=== PATIENT | female | born 1960 | race Caucasian/White ===

== ENCOUNTER 2017-03-12 16:51 | Emergency (ER) | payer MEDICAID ==
[~2017-03-12] VITALS: Ht 177.8 cm; Wt 73.5 kg
[~2017-03-12 16:51] MED LIST: CEFD300C37 PO; ESCI10TA10 PO; ESOM20CA; ESOM40CA PO; HYDR-3138 PO; HYDR-3307; IBUP200T48; IBUP200T5 PO; LORA1TAB; RISP2TAB35; RISP2TAB35 PO; SUMA100T3; TRAM100T8; TRAZ150T68
[2017-03-12 17:54] LABS: ACETAMINOPHEN < 2 mcg/mL (10-30); BLOOD UREA NITROGEN 21 mg/dL (7-18)
[2017-03-12] MEDS ORDERED: ZIPRASIDONE 20 MG INJ IM ONE (19:49)
[2017-03-12 23:05] VITALS: BP 148/88
== END 2017-03-12 23:07 | disposition home or self-care (01) ==
LOC: ED 19:42
DX: F20.89 Other schizophrenia (principal); F10.120 Alcohol abuse with intoxication, uncomplicated; M06.9 Rheumatoid arthritis, unspecified; F31.9 Bipolar disorder, unspecified; F17.200 Nicotine dependence, unspecified, uncomplicated
CPT/HCPCS: 36415; 80048; 80307; 80329; 82040; 85025; 99284; G0480

== ENCOUNTER 2017-05-06 14:23 | Emergency (ER) | payer SELFPAY ==
[~2017-05-06] VITALS: Ht 180.3 cm; Wt 75.0 kg
[2017-05-06 14:25] VITALS: BP 173/110
== END 2017-05-06 15:55 | disposition left against medical advice (07) ==
LOC: ED 15:52
DX: M25.561 Pain in right knee (principal); M79.604 Pain in right leg; Z53.21 Procedure and treatment not carried out due to patient leaving prior to being seen by health care provider

== ENCOUNTER 2017-10-14 14:26 | Emergency (ER) | payer OTHER ==
[~2017-10-14] VITALS: Ht 179.1 cm; Wt 77.0 kg
[~2017-10-14 14:26] MED LIST changes: -HYDR-3138 PO; +HYDR-3237 PO; +IBUP-1484 PO; -IBUP200T5 PO; +TRAZ150T62; -TRAZ150T68
[2017-10-14] MEDS ORDERED: IBUP-1223 PO (14:48)
[2017-10-14] MEDS ORDERED: ONDANSETRON ODT 4 MG PO ONE (15:00)
[2017-10-14] MEDS ORDERED: ONDANSETRON ODT 4 MG ONE (15:01)
[2017-10-14 15:20] LABS: HEMATOCRIT 47.2 % (34.6-47.8); HEMOGLOBIN 15.9 g/dL (11.7-16.4); WHITE BLOOD COUNT 7.2 x10^3/uL (3.4-10)
[2017-10-14 15:26] LABS: BLOOD UREA NITROGEN 24 mg/dL (7-18)
[2017-10-14 15:43] LABS: RAPID INFLUENZA A Negative (Negative); RAPID INFLUENZA B Negative (Negative)
[2017-10-14 16:29] VITALS: BP 154/92
[2017-10-14] MEDS ORDERED: IBUPROFEN 200 MG TABLET PO ONE (16:30)
== END 2017-10-14 16:31 | disposition home or self-care (01) ==
LOC: ED 16:25
DX: J20.8 Acute bronchitis due to other specified organisms (principal); I10 Essential (primary) hypertension; G40.909 Epilepsy, unspecified, not intractable, without status epilepticus; M06.9 Rheumatoid arthritis, unspecified
CPT/HCPCS: 36415; 71020; 80048; 82040; 85025; 87400; 99285; Q0162

== ENCOUNTER 2019-02-19 16:43 | Emergency (ER) | payer MEDICAID ==
[~2019-02-19] VITALS: Ht 175.3 cm; Wt 67.5 kg
[~2019-02-19 16:43] MED LIST changes: +IBUP-1223 PO; -IBUP200T48; +IBUP200T49
--- NOTE | 2019-02-19 16:58 | NUR ---
NO ANSWER X1
--- NOTE | 2019-02-19 17:10 | NUR ---
NO ANSWER X 2
--- NOTE | 2019-02-19 17:50 | NUR ---
Assumed care of patient. C/O SI, but not plan. C/O hearing voices x 2 years. Ambulated with a steady gait to the restroom to collect urine.
[2019-02-19 18:00] LABS: BASOPHILS # (AUTO) 0.02 x10^3/uL (0-0.1); BASOPHILS % (AUTO) 0 % (0-1); EOSINOPHILS # (AUTO) 0.27 x10^3/uL (0-0.4); EOSINOPHILS % (AUTO) 3 % (1-7); LYMPHOCYTES # (AUTO) 1.07 x10^3/uL (1-3.4); LYMPHOCYTES % (AUTO) 11 % (22-44); MD NO; MEAN CORPUSCULAR HEMOGLOBIN 26.7 pg (27.0-34.8); MEAN CORPUSCULAR HGB CONC 32.5 g/dL (32.4-35.8); MEAN CORPUSCULAR VOLUME 82.1 fL (80-100); MEAN PLATELET VOLUME 8.3 fL (7.4-10.4); MONOCYTES # (AUTO) 0.38 x10^3/uL (0.2-0.8); MONOCYTES % (AUTO) 4 % (2-9); NEUTROPHILS # (AUTO) 7.66 x10^3/uL (1.8-6.8); NEUTROPHILS % (AUTO) 82 % (42-75); PLATELET COUNT 353 x10^3/uL (130-400); RED BLOOD COUNT 4.32 x10^6/uL (3.82-5.3); RED CELL DISTRIBUTION WIDTH 14.6 % (9.6-15.2)
--- NOTE | 2019-02-19 18:04 | NUR ---
Patient reports forgettign to urinate in cup when in restroom.
[2019-02-19 18:09] LABS: ALANINE AMINOTRANSFERASE 31 U/L (12-78); ALBUMIN 3.8 g/dL (3.4-5.0); ANION GAP 8 mmol/L (5-15); CALCIUM 9.1 mg/dL (8.5-10.1); CHLORIDE 108 mmol/L (98-107)
[2019-02-19 18:12] LABS: ALKALINE PHOSPHATASE 132 U/L (45-117); BILIRUBIN,TOTAL 0.3 mg/dL (0.2-1.0); CREATININE 1.29 mg/dL (0.55-1.02); TOTAL PROTEIN 7.7 g/dL (6.4-8.2)
[2019-02-19 18:15] LABS: ACETAMINOPHEN < 2 mcg/mL (10-30)
--- NOTE | 2019-02-19 19:01 | NUR ---
MD at bedside discussing POC.
--- NOTE | 2019-02-19 19:22 | NUR ---
telepsych initiated, [id number] bot placed at bs.
[2019-02-19] MEDS ORDERED: ACETAMINOPHEN 325 MG TABLET ONE (19:41)
[2019-02-19 19:45] LABS: AMPHETAMINE SCREEN, URINE Positive (Negative); BARBITURATE SCREEN, URINE Negative (Negative); BENZODIAZEPINE SCREEN, URINE Negative (Negative); CANNABINOID SCREEN, URINE Positive (Negative); COCAINE SCREEN, URINE Negative (Negative); METHADONE SCREEN, URINE Negative (Negative); OPIATE SCREEN, URINE Negative (Negative)
--- NOTE | 2019-02-19 19:50 | NUR ---
C/O back and knee pain d/t arthritis. Tylenol admin. No other needs.
[2019-02-19] MEDS ORDERED: ACETAMINOPHEN 325 MG TABLET PO ONE (20:00)
--- NOTE | 2019-02-19 20:48 | NUR ---
Provided with dinner and more blankets. No needs.
--- NOTE | 2019-02-19 21:42 | NUR ---
ASSUMED CARE OF PATIENT. REPORT GIVEN FROM FABIAN MEANS
--- NOTE | 2019-02-19 21:50 | NUR ---
Report to Soniya Esquivel RN.
--- NOTE | 2019-02-19 21:51 | NUR ---
pt resting in room. pt waiting for telepsych. no acute distress noted. sitter at door. will continue to monitor.
--- NOTE | 2019-02-19 22:02 | NUR ---
PT REQUESTING IBU. DR REIS AWARE
[2019-02-19] MEDS ORDERED: IBUPROFEN 200 MG TABLET PO ONE (22:30)
[2019-02-19] MEDS ORDERED: IBUPROFEN 200 MG TABLET ONE (22:30)
--- NOTE | 2019-02-19 22:58 | NUR ---
PT RESTING IN ROOM. PT WAITING FOR TELEPSYCH. SITTER AT BEDSIDE. WILL CONTINUE TO MONITOR.
[2019-02-19] MEDS ORDERED: HYDROcodone/APAP 5/325 TABLET ONE (23:06)
[2019-02-19] MEDS ORDERED: HYDROcodone/APAP 5/325 TABLET PO ONE (23:30)
--- NOTE | 2019-02-19 23:30 | NUR ---
REPORT CALLED INTO SOC
--- NOTE | 2019-02-20 00:08 | NUR ---
DR REIS HAS UPDATED PATIENT. PT TO BE DISCHARGED
[2019-02-20] MEDS ORDERED: FAMOTIDINE 20 MG TABLET ONE (00:13)
[2019-02-20] MEDS ORDERED: POTASSIUM CHLORIDE 20 MEQ TAB.ER.PRT ONE (00:13)
[2019-02-20] MEDS ORDERED: FAMOTIDINE 20 MG TABLET PO ONE (00:30)
[2019-02-20] MEDS ORDERED: POTASSIUM CHLORIDE 20 MEQ TAB.ER.PRT PO ONE (00:30)
[2019-02-20] MEDS ORDERED: LORazepam 1MG TABLET ONE (00:36)
--- NOTE | 2019-02-20 00:41 | NUR ---
PT DENIES SI. PT REPORTS SHE WANTS TO BE DISCHARGED. PT DISCHRAGED BY DR REIS AND SOC. PT GIVEN ATIVAN BEFORE DISCHRAGE. PT GETTING DRESSED.
[2019-02-20] MEDS ORDERED: LORazepam 1MG TABLET PO ONE (01:00)
[2019-02-20 01:01] VITALS: BP 160/98
== END 2019-02-20 01:17 | disposition home or self-care (01) ==
LOC: ED 18:42
DX: F32.0 Major depressive disorder, single episode, mild (principal); F15.129 Other stimulant abuse with intoxication, unspecified; F20.9 Schizophrenia, unspecified; F41.1 Generalized anxiety disorder; I10 Essential (primary) hypertension; G43.909 Migraine, unspecified, not intractable, without status migrainosus; M06.9 Rheumatoid arthritis, unspecified; Z72.9 Problem related to lifestyle, unspecified; Z75.9 Unspecified problem related to medical facilities and other health care; Z91.14 Patient's other noncompliance with medication regimen; Z63.8 Other specified problems related to primary support group
CPT/HCPCS: 36415; 80053; 80307; 80329; 85025; 99284; G0480

== ENCOUNTER 2019-02-21 23:24 | Emergency (ER) | payer MEDICAID ==
[~2019-02-21] VITALS: Ht 177.8 cm; Wt 69.0 kg
--- NOTE | 2019-02-21 23:39 | NUR ---
pt ambulates from triage to room with steady gait.
--- NOTE | 2019-02-21 23:46 | NUR ---
PT BELONGINGS CONFISCATED AND PLACED IN 3 OF 3 BAGS TO BE LOCKED IN SECURED STORAGE. PT EDUCATED ON ER PROCESS AND VERBALIZES UNDERSTANDING. PT INSTRUCTED TO CHANGE INTO GOWN AND TO REMAIN IN GURNEY. AWAITING ERP AT THIS TIME. PT BEING MOVED FROM ER ROOM 37 TO 41 SO THAT ROOM CAN BE SECURE FOR PT AND STAFF SAFETY AND BE MONITORED BY [facility]ER[facility]. AWAITING POC AT THIS TIME.
[2019-02-21 23:56] LABS: BASOPHILS # (AUTO) 0.03 x10^3/uL (0-0.1); BASOPHILS % (AUTO) 0 % (0-1); EOSINOPHILS # (AUTO) 0.31 x10^3/uL (0-0.4); EOSINOPHILS % (AUTO) 4 % (1-7); LYMPHOCYTES # (AUTO) 1.39 x10^3/uL (1-3.4); LYMPHOCYTES % (AUTO) 17 % (22-44); MD NO; MEAN CORPUSCULAR HEMOGLOBIN 27.9 pg (27.0-34.8); MEAN PLATELET VOLUME 8.1 fL (7.4-10.4); MONOCYTES # (AUTO) 0.56 x10^3/uL (0.2-0.8); MONOCYTES % (AUTO) 7 % (2-9); NEUTROPHILS # (AUTO) 6.15 x10^3/uL (1.8-6.8); NEUTROPHILS % (AUTO) 73 % (42-75); PLATELET COUNT 348 x10^3/uL (130-400); RED BLOOD COUNT 4.29 x10^6/uL (3.82-5.3); RED CELL DISTRIBUTION WIDTH 15.1 % (9.6-15.2)
[2019-02-22 00:07] LABS: ALANINE AMINOTRANSFERASE 33 U/L (12-78); ALBUMIN 3.8 g/dL (3.4-5.0); ANION GAP 7 mmol/L (5-15); CALCIUM 8.8 mg/dL (8.5-10.1); CHLORIDE 109 mmol/L (98-107); CREATININE 1.58 mg/dL (0.55-1.02)
[2019-02-22 00:09] LABS: ALKALINE PHOSPHATASE 149 U/L (45-117); BILIRUBIN,TOTAL 0.6 mg/dL (0.2-1.0); TOTAL PROTEIN 7.8 g/dL (6.4-8.2)
[2019-02-22 00:14] LABS: SALICYLATE LEVEL < 1.7 mg/dL (2.8-20.0)
[2019-02-22 00:15] LABS: ACETAMINOPHEN < 2 mcg/mL (10-30)
--- NOTE | 2019-02-22 01:33 | NUR ---
PT MOVED FROM ROOM 37 TO ROOM 41
--- NOTE | 2019-02-22 02:00 | NUR ---
PT INSTRUCTED ON THE NEED FOR URINE SAMPLE. PT VERBALIZES UNDERSTANDING BUT IS NON COOPERATIVE AT THIS TIME.
--- NOTE | 2019-02-22 02:39 | NUR ---
PT ASLEEP IN [facility]; [place]. SITTER OUTSIDE OF ROOM AT THIS TIME FOR DIRECT OBSERVATION OF PT.
[2019-02-22 05:37] VITALS: BP 164/105
--- NOTE | 2019-02-22 05:37 | NUR ---
PT VSS AND UPDATED IN EMR. PT FINISHED TELEPSYCH CONSULT. PT PROVIDED ICE CHIPS PER REQUEST. SITTER OUTSIDE OF ROOM FOR PT OBSERVATION.
[2019-02-22 05:52] LABS: AMPHETAMINE SCREEN, URINE Positive (Negative); BARBITURATE SCREEN, URINE Negative (Negative); BENZODIAZEPINE SCREEN, URINE Negative (Negative); CANNABINOID SCREEN, URINE Positive (Negative); COCAINE SCREEN, URINE Negative (Negative); METHADONE SCREEN, URINE Negative (Negative); OPIATE SCREEN, URINE Negative (Negative)
--- NOTE | 2019-02-22 06:48 | NUR ---
bedside report from FABIAN Davey. pt resting on gurney. no acute distress noted. pt comes to ED with c/o major depression.
--- NOTE | 2019-02-22 06:49 | NUR ---
BS REPORT OF PT GIVEN TO FABIAN ENNIS. ALL QUESTIONS ANSWERED.
--- NOTE | 2019-02-22 07:23 | NUR ---
DIET TRAY ORDERED.
--- NOTE | 2019-02-22 08:07 | NUR ---
PT SLEEPING ON GURNEY. NO ACUTE DISTRESS NOTED. RESPS EQUAL AND UNLABORED. ALL SAFETY MEASURES OBTAINED. WILL CONTINUE TO MONITOR.
--- NOTE | 2019-02-22 08:17 | NUR ---
DIET TRAY DELIVERED. PT A&OX4. NO ACUTE DISTRESS NOTED. PT PLEASANT AND THANKFUL FOR BREAKFAST TRAY. NO NEEDS REQUESTED AT THIS TIME. ALL SAFETY MEASURES OBTAINED
[2019-02-22] MEDS ORDERED: ACETAMINOPHEN 325 MG TABLET ONE (08:40)
--- NOTE | 2019-02-22 08:44 | NUR ---
PT C/O BILATERAL HIP PAIN. PT GIVEN TYLENOL. PT NOW RUDE AND CALLED THIS RN "BITCH" I WAS LEAVING THE ROOM. ALL SAFETY MEASURES OBTAINED
--- NOTE | 2019-02-22 09:43 | NUR ---
REPORT TO FABIAN IRVIN. ALL QUESTIONS ANSWERED
--- NOTE | 2019-02-22 09:50 | NUR ---
PT TRANSFERRED TO FACILITY. PT LEFT WITH ALL PERSONAL BELONGINGS, INCLUDING WALKER.
[2019-02-22] MEDS ORDERED: ACETAMINOPHEN 325 MG TABLET PO ONE (10:00)
== END 2019-02-22 10:11 ==
LOC: ED 23:59 → UNDOADMIN 02-22 06:26 → EDIP 02-22 06:26 → ED 02-22 10:11
DX: F20.0 Paranoid schizophrenia (principal)
CPT/HCPCS: 36415; 80053; 80307; 80329; 85025; 99285; G0480

== ENCOUNTER 2019-02-22 09:30 | Inpatient (IN) | payer MEDICAID ==
[~2019-02-22] VITALS: Ht 175.3 cm; Wt 66.8 kg
[2019-02-22 09:54] VITALS: BP 182/99
[2019-02-22] MEDS ORDERED: PLEASE ENTER HEIGHT AND WEIGHT MC SCH (10:00)
[2019-02-22] MEDS ORDERED: BISACODYL 10 MG SUPP PR PRN (10:00)
[2019-02-22] MEDS ORDERED: POLYETHYLENE GLYCOL 17 GM PACKET PO PRN (10:00)
[2019-02-22 10:55] LABS: BASOPHILS # (AUTO) 0.03 x10^3/uL (0-0.1); BASOPHILS % (AUTO) 1 % (0-1); EOSINOPHILS # (AUTO) 0.29 x10^3/uL (0-0.4); EOSINOPHILS % (AUTO) 5 % (1-7); LYMPHOCYTES # (AUTO) 0.96 x10^3/uL (1-3.4); LYMPHOCYTES % (AUTO) 15 % (22-44); MD NO; MEAN CORPUSCULAR HEMOGLOBIN 27.4 pg (27.0-34.8); MEAN CORPUSCULAR HGB CONC 33.1 g/dL (32.4-35.8); MEAN CORPUSCULAR VOLUME 82.8 fL (80-100); MEAN PLATELET VOLUME 8.2 fL (7.4-10.4); MONOCYTES # (AUTO) 0.38 x10^3/uL (0.2-0.8); MONOCYTES % (AUTO) 6 % (2-9); NEUTROPHILS # (AUTO) 4.57 x10^3/uL (1.8-6.8); NEUTROPHILS % (AUTO) 73 % (42-75); PLATELET COUNT 328 x10^3/uL (130-400); RED BLOOD COUNT 4.18 x10^6/uL (3.82-5.3); RED CELL DISTRIBUTION WIDTH 15.5 % (9.6-15.2)
[2019-02-22 10:58] LABS: ALBUMIN 3.1 g/dL (3.4-5.0); ANION GAP 7 mmol/L (5-15); CALCIUM 8.8 mg/dL (8.5-10.1); CHLORIDE 109 mmol/L (98-107)
[2019-02-22 11:00] VITALS: BP 182/99
[2019-02-22 11:25] LABS: ALANINE AMINOTRANSFERASE 27 U/L (12-78); ALKALINE PHOSPHATASE 125 U/L (45-117); BILIRUBIN,TOTAL 0.4 mg/dL (0.2-1.0); CHOL/HDL RATIO 2.6; CHOLESTEROL, TOTAL 136 mg/dL (140-239); CREATININE 1.15 mg/dL (0.55-1.02); FREE T4 (FREE THYROXINE) 1.19 ng/dL (0.76-1.46); HDL CHOL % 38 % (28-40); HDL CHOLESTEROL (DIRECT) 52 mg/dL (40-60); LDL CHOLESTEROL,CALCULATED 57 mg/dL (54-169); LDL/HDL RATIO 1.1 (0.5-3.0); THYROID STIMULATING HORMONE 0.403 mIU/L (0.358-3.740); TOTAL PROTEIN 6.8 g/dL (6.4-8.2); TRIGLYCERIDES 137 mg/dL (50-200); VLDL CHOLESTEROL 27 mg/dL (0-25)
[2019-02-22 11:27] LABS: HCT (SEDRATE) 34.6 % (34.6-47.8)
[2019-02-22 13:55] LABS: MICROSCOPIC AUTO
[2019-02-22 14:01] LABS: CULTURE INDICATED? YES
[2019-02-22] MEDS: LORazepam 1MG TABLET PO PRN (17:00)
[2019-02-22] MEDS: ACETAMINOPHEN 325 MG TABLET PO PRN (17:00)
[2019-02-22 19:50] VITALS: BP 156/91
[2019-02-22] MEDS: RISPERIDONE 1 MG TABLET PO SCH (19:59)
[2019-02-23] MEDS: LORazepam 1MG TABLET PO PRN ×3 (01:28→20:19)
[2019-02-23 07:02] VITALS: BP 152/94
[2019-02-23] MEDS: SENNA/DOCUSATE TABLET PO SCH ×2 (09:00→09:42)
[2019-02-23] MEDS: RISPERIDONE 1 MG TABLET PO SCH ×2 (09:42→20:15)
[2019-02-23] MEDS: ACETAMINOPHEN 325 MG TABLET PO PRN (10:49)
[2019-02-23] MEDS ORDERED: CALCIUM CARBONATE 500 MG TAB.CHEW ONE (10:58)
[2019-02-23] MEDS ORDERED: CALCIUM CARBONATE 500 MG TAB.CHEW PO PRN (11:00)
[2019-02-23] MEDS: SODIUM CHLORIDE 0.9% 1,000 ML IV SCH ×2 (14:15→14:23)
[2019-02-23 17:28] VITALS: BP 165/89
[2019-02-23] MEDS: CARVEDILOL 6.25 MG TABLET PO SCH (17:30)
[2019-02-23 19:38] VITALS: BP 160/89
[2019-02-24] MEDS: SODIUM CHLORIDE 0.9% 1,000 ML IV SCH ×2 (01:40→09:00)
[2019-02-24 04:44] LABS: BASOPHILS # (AUTO) 0.02 x10^3/uL (0-0.1); BASOPHILS % (AUTO) 0 % (0-1); EOSINOPHILS # (AUTO) 0.23 x10^3/uL (0-0.4); EOSINOPHILS % (AUTO) 5 % (1-7); LYMPHOCYTES # (AUTO) 1.09 x10^3/uL (1-3.4); LYMPHOCYTES % (AUTO) 22 % (22-44); MD NO; MEAN CORPUSCULAR HGB CONC 33.5 g/dL (32.4-35.8); MEAN CORPUSCULAR VOLUME 83.8 fL (80-100); MONOCYTES # (AUTO) 0.33 x10^3/uL (0.2-0.8); MONOCYTES % (AUTO) 7 % (2-9); NEUTROPHILS # (AUTO) 3.36 x10^3/uL (1.8-6.8); NEUTROPHILS % (AUTO) 67 % (42-75); PLATELET COUNT 267 x10^3/uL (130-400); RED BLOOD COUNT 3.81 x10^6/uL (3.82-5.3); RED CELL DISTRIBUTION WIDTH 15.6 % (9.6-15.2)
[2019-02-24 04:56] LABS: ANION GAP 6 mmol/L (5-15); CALCIUM 8.3 mg/dL (8.5-10.1); CHLORIDE 116 mmol/L (98-107)
[2019-02-24] MEDS: CARVEDILOL 6.25 MG TABLET PO SCH (06:00)
[2019-02-24 07:20] VITALS: BP 169/93
[2019-02-24] MEDS: SENNA/DOCUSATE TABLET PO SCH (09:00)
[2019-02-24] MEDS: RISPERIDONE 1 MG TABLET PO SCH ×2 (09:06→19:54)
[2019-02-24] MEDS: LORazepam 1MG TABLET PO PRN ×2 (10:11→19:54)
[2019-02-24] MEDS: CEFTRIAXONE PMX 1GM/50ML 50 ML IV SCH (10:36)
[2019-02-24 17:33] VITALS: BP 169/88
[2019-02-24] MEDS: CARVEDILOL 12.5 MG TABLET PO SCH (17:35)
[2019-02-24 19:50] VITALS: BP 165/83
[2019-02-24] MEDS: SODIUM CHLORIDE FLUSH 10ML SYR IVF SCH (19:56)
[2019-02-25] MEDS: CARVEDILOL 12.5 MG TABLET PO SCH ×2 (05:27→17:46)
[2019-02-25] MEDS: ACETAMINOPHEN 325 MG TABLET PO PRN (05:27)
[2019-02-25] MEDS: LORazepam 1MG TABLET PO PRN ×2 (05:27→18:01)
[2019-02-25 06:54] LABS: BASOPHILS # (AUTO) 0.02 x10^3/uL (0-0.1); BASOPHILS % (AUTO) 1 % (0-1); EOSINOPHILS % (AUTO) 4 % (1-7); LYMPHOCYTES # (AUTO) 1.18 x10^3/uL (1-3.4); LYMPHOCYTES % (AUTO) 25 % (22-44); MD NO; MEAN CORPUSCULAR HEMOGLOBIN 27.2 pg (27.0-34.8); MEAN CORPUSCULAR HGB CONC 32.6 g/dL (32.4-35.8); MEAN CORPUSCULAR VOLUME 83.5 fL (80-100); MEAN PLATELET VOLUME 7.9 fL (7.4-10.4); MONOCYTES # (AUTO) 0.36 x10^3/uL (0.2-0.8); MONOCYTES % (AUTO) 8 % (2-9); NEUTROPHILS # (AUTO) 2.88 x10^3/uL (1.8-6.8); NEUTROPHILS % (AUTO) 62 % (42-75); PLATELET COUNT 247 x10^3/uL (130-400); RED BLOOD COUNT 3.89 x10^6/uL (3.82-5.3)
[2019-02-25 07:05] LABS: ALANINE AMINOTRANSFERASE 29 U/L (12-78); ALBUMIN 2.8 g/dL (3.4-5.0); ANION GAP 7 mmol/L (5-15); CALCIUM 8.2 mg/dL (8.5-10.1); CHLORIDE 113 mmol/L (98-107); CREATININE 0.78 mg/dL (0.55-1.02)
[2019-02-25 07:08] LABS: ALKALINE PHOSPHATASE 101 U/L (45-117); BILIRUBIN,TOTAL 0.3 mg/dL (0.2-1.0); TOTAL PROTEIN 6.5 g/dL (6.4-8.2)
[2019-02-25 07:14] VITALS: BP 158/95
[2019-02-25] MEDS: SODIUM CHLORIDE FLUSH 10ML SYR IVF SCH ×2 (09:08→20:15)
[2019-02-25] MEDS: CEFTRIAXONE PMX 1GM/50ML 50 ML IV SCH (09:09)
[2019-02-25] MEDS: RISPERIDONE 1 MG TABLET PO SCH ×2 (09:09→20:15)
[2019-02-25] MEDS: SENNA/DOCUSATE TABLET PO SCH (09:09)
[2019-02-25 18:00] VITALS: BP 156/87
[2019-02-25 19:40] VITALS: BP 169/104
[2019-02-26] MEDS: LORazepam 1MG TABLET PO PRN (01:20)
[2019-02-26 06:43] LABS: CHLORIDE 110 mmol/L (98-107)
[2019-02-26 06:48] LABS: ANION GAP 7 mmol/L (5-15); CALCIUM 8.8 mg/dL (8.5-10.1); CREATININE 0.88 mg/dL (0.55-1.02)
[2019-02-26 07:23] VITALS: BP 169/94
[2019-02-26] MEDS: RISPERIDONE 1 MG TABLET PO SCH ×2 (08:24→09:26)
[2019-02-26] MEDS: LISINOPRIL 5 MG TABLET PO SCH ×2 (08:24→09:26)
[2019-02-26] MEDS: CARVEDILOL 12.5 MG TABLET PO SCH ×2 (08:25→09:25)
[2019-02-26] MEDS: SODIUM CHLORIDE FLUSH 10ML SYR IVF SCH (08:25)
[2019-02-26] MEDS: SENNA/DOCUSATE TABLET PO SCH (08:58)
[2019-02-26] MEDS: CEFTRIAXONE PMX 1GM/50ML 50 ML IV SCH (09:15)
[2019-02-26] MEDS ORDERED: AMOXICILLIN/CLAV 875-125MG TABLET PO SCH (10:00)
== END 2019-02-26 10:11 | disposition home or self-care (01) | DRG 683 ==
LOC: 3E 09:54
PROVIDERS: ADMIT Psychiatry & Neurology Psychosomatic Medicine; ATTEND Psychiatry & Neurology Psychosomatic Medicine
DX: N17.9 Acute kidney failure, unspecified (principal); F20.0 Paranoid schizophrenia; F23 Brief psychotic disorder; N39.0 Urinary tract infection, site not specified; E87.6 Hypokalemia; F31.9 Bipolar disorder, unspecified; G40.909 Epilepsy, unspecified, not intractable, without status epilepticus; I10 Essential (primary) hypertension; K21.9 Gastro-esophageal reflux disease without esophagitis; K59.00 Constipation, unspecified; M06.9 Rheumatoid arthritis, unspecified; M19.90 Unspecified osteoarthritis, unspecified site; M54.30 Sciatica, unspecified side; M81.0 Age-related osteoporosis without current pathological fracture; G89.29 Other chronic pain; F42.8 Other obsessive-compulsive disorder; Z53.21 Procedure and treatment not carried out due to patient leaving prior to being seen by health care provider; Z82.49 Family history of ischemic heart disease and other diseases of the circulatory system; Z82.5 Family history of asthma and other chronic lower respiratory diseases; Z87.11 Personal history of peptic ulcer disease; Z87.891 Personal history of nicotine dependence
CPT/HCPCS: 36415; 80048; 80053; 80061; 81001; 82140; 82607; 84439; 84443; 85025; 85651; 86592; 87077; 87086; 87186; 93005; J0696; 92522-GN; J7030

== ENCOUNTER 2019-06-03 21:17 | Emergency (ER) | payer MEDICAID ==
[~2019-06-03] VITALS: Ht 177.8 cm; Wt 75.0 kg
[2019-06-03] MEDS ORDERED: ranitidine (21:32)
--- NOTE | 2019-06-03 21:33 | NUR ---
Patient to room with EMS; patient c/o pain in right hip; right back pain with no new trauma or event. Placed on monitor; provider to bedside; awaiting orders VSS.
[2019-06-03] MEDS ORDERED: HYDROcodone/APAP 5/325 TABLET ONE (21:47)
--- NOTE | 2019-06-03 21:49 | NUR ---
Orders received; order for UA noted; informed patient; patient relayed she couldn't walk; RN informed straight cath would be necessary, patient agreed. x2 RN to bedside for straight cath urine collection. Patient educated on process. Patient verbalized understanding, urine collected without event. Pain med per md order administered. Awaiting radiology
--- NOTE | 2019-06-03 21:56 | NUR ---
Patient to xray
[2019-06-03] MEDS ORDERED: HYDROcodone/APAP 5/325 TABLET PO ONE (22:00)
[2019-06-03 22:02] LABS: MICROSCOPIC AUTO
--- NOTE | 2019-06-03 22:02 | NUR ---
Report to NOC RN. POC covered; all questions answered.
[2019-06-03 22:05] LABS: CULTURE INDICATED? YES
[2019-06-03] MEDS ORDERED: KETOROLAC 30 MG/1 ML IM ONE (22:30)
[2019-06-03] MEDS ORDERED: CEFDINIR 300 MG CAPSULE PO ONE (22:30)
[2019-06-03] MEDS ORDERED: KETOROLAC 30 MG/1 ML ONE (22:45)
[2019-06-03] MEDS ORDERED: CEFDINIR 300 MG CAPSULE ONE (22:45)
[2019-06-03 22:52] VITALS: BP 158/99
== END 2019-06-03 22:54 | disposition home or self-care (01) ==
LOC: ED 22:03
DX: G89.29 Other chronic pain (principal); M54.5 Low back pain; M25.551 Pain in right hip; N39.0 Urinary tract infection, site not specified; M25.511 Pain in right shoulder; I10 Essential (primary) hypertension; F17.210 Nicotine dependence, cigarettes, uncomplicated; F20.9 Schizophrenia, unspecified
CPT/HCPCS: 71045; 72110; 73502; 81001; 87077; 87086; 96372; 99284; J1885; 87186

== ENCOUNTER 2020-03-14 12:53 | Inpatient (IN) | payer MEDICAID ==
[~2020-03-14] VITALS: Ht 177.8 cm; Wt 75.2 kg
[~2020-03-14 12:53] MED LIST changes: -HYDR-3307; +HYDR-36; -IBUP-1484 PO; +IBUP-1902 PO; +ranitidine
--- NOTE | 2020-03-14 13:33 | NUR ---
this is a 59 yr old female that presents to the er for bilateral leg pain and swelling with right greater than left. pt ambulates with walker at baseline. pt states she has had sob at night but has improvement from laying on left side. pt in gown and in bed. nibp, o2 and monitor technician in place.
[2020-03-14] MEDS ORDERED: SODIUM CHLORIDE FLUSH 10ML SYR IVF ONE (14:00)
[2020-03-14 14:02] LABS: BASOPHILS # (AUTO) 0.05 x10^3/uL (0-0.1); BASOPHILS % (AUTO) 1 % (0-1); EOSINOPHILS # (AUTO) 0.23 x10^3/uL (0-0.4); EOSINOPHILS % (AUTO) 3 % (1-7); LYMPHOCYTES # (AUTO) 1.52 x10^3/uL (1-3.4); LYMPHOCYTES % (AUTO) 18 % (22-44); MD NO; MEAN CORPUSCULAR HEMOGLOBIN 21.1 pg (27.0-34.8); MEAN CORPUSCULAR HGB CONC 30.5 g/dL (32.4-35.8); MEAN CORPUSCULAR VOLUME 69.1 fL (80-100); MEAN PLATELET VOLUME 8.5 fL (7.4-10.4); MONOCYTES # (AUTO) 0.57 x10^3/uL (0.2-0.8); MONOCYTES % (AUTO) 7 % (2-9); NEUTROPHILS % (AUTO) 72 % (42-75); PLATELET COUNT 409 x10^3/uL (130-400); RED BLOOD COUNT 4.57 x10^6/uL (3.82-5.3); RED CELL DISTRIBUTION WIDTH 17.8 % (9.6-15.2)
[2020-03-14 14:12] LABS: ALANINE AMINOTRANSFERASE 112 U/L (12-78); ALBUMIN 2.6 g/dL (3.4-5.0); ANION GAP 9 mmol/L (5-15); CALCIUM 8.2 mg/dL (8.5-10.1); CHLORIDE 109 mmol/L (98-107); CREATININE 1.28 mg/dL (0.55-1.02)
[2020-03-14 14:16] LABS: ALKALINE PHOSPHATASE 154 U/L (45-117); BILIRUBIN,TOTAL 0.4 mg/dL (0.2-1.0); TOTAL PROTEIN 7.1 g/dL (6.4-8.2)
--- NOTE | 2020-03-14 15:45 | NUR ---
awaiting cta at this time. pt aware and agrees with poc. no other wants or needs expressed. poc to admit pt.
--- NOTE | 2020-03-14 16:12 | NUR ---
pt at ct. awaitng return.
[2020-03-14] MEDS ORDERED: OMNIPAQUE 350 MG/ML, 100ML BOTTLE ONE (16:17)
--- NOTE | 2020-03-14 16:34 | NUR ---
in room to start second iv. poc discussed with pt. pt at this time does not want to stay in the hospital. pt explained the severity of the situation and by leaving the hospital she could potentially . pt still is unsure if she wants to stay. provider made aware at this time.
--- NOTE | 2020-03-14 16:43 | NUR ---
TASK RN: Law at discussing need for admit and risk of leaving. Pt resting in gurney comfortable, RESP WNL, call light on lap, NAD at this time. WCTM
[2020-03-14] MEDS ORDERED: HEPARIN 5,000 UNITS/ML, 1ML ONE (16:50)
[2020-03-14] MEDS ORDERED: HEPARIN 25,000 UNITS/250ML PMX 250 ML ONE (16:52)
[2020-03-14] MEDS ORDERED: HEPARIN 25,000 UNITS/250ML PMX 250 ML IV PRN (17:00)
[2020-03-14] MEDS ORDERED: HEPARIN 5,000 UNITS/ML, 1ML IV ONE (17:00)
--- NOTE | 2020-03-14 17:15 | NUR ---
THROUGHPUT RN: PER GIOVANNI LOPEZ AND DR. LOPEZ PT DOES NOT NEED TO BE ON A CO-VID R/O UNIT.
[2020-03-14 17:20] LABS: TROPONIN I 0.067 ng/mL (0.000-0.045)
[2020-03-14] MEDS ORDERED: hydrALAzine 20 MG/ML, 1ML IVPush PRN (17:30)
[2020-03-14] MEDS ORDERED: ONDANSETRON 2MG/ML, 2ML IVPush PRN (17:30)
[2020-03-14] MEDS ORDERED: ONDANSETRON ODT 4 MG PO PRN (17:30)
[2020-03-14] MEDS ORDERED: ACETAMINOPHEN 325 MG TABLET PO PRN (17:30)
[2020-03-14] MEDS ORDERED: morphine SULFATE 10 MG/ML, 1ML IVPush PRN (17:30)
[2020-03-14] MEDS ORDERED: BACLOFEN 10 MG TABLET PO PRN (17:30)
--- NOTE | 2020-03-14 18:09 | NUR ---
SWEATBAND DECORATING MACHINE OPERATOR: PT READY TO BE TRANSPORTED. PT LEFT ROOM WITH ALL PERSONAL BELONGINGS. INCLUDING: CLOTHES, CANE, SHOES.
[2020-03-14 18:44] VITALS: BP 194/143
[2020-03-14] MEDS: PANTOPRAZOLE 20MG TABLET PO SCH (18:53)
[2020-03-14] MEDS ORDERED: RISPERIDONE 2 MG TABLET PO SCH (21:00)
[2020-03-14 21:10] VITALS: BP 166/114
[2020-03-14 21:22] VITALS: BP 175/112
[2020-03-14 22:22] LABS: TROPONIN I 0.057 ng/mL (0.000-0.045)
[2020-03-15] MEDS ORDERED: NICOTINE 7 MG/24 HR PATCH.TD24 TD SCH
[2020-03-15] MEDS: HEPARIN 5,000 UNITS/ML, 1ML IV PRN ×2 (00:30→08:15)
[2020-03-15 00:35] VITALS: BP 152/92
[2020-03-15] MEDS: PANTOPRAZOLE 20MG TABLET PO SCH (06:01)
[2020-03-15 06:37] LABS: BASOPHILS # (AUTO) 0.04 x10^3/uL (0-0.1); BASOPHILS % (AUTO) 1 % (0-1); EOSINOPHILS # (AUTO) 0.13 x10^3/uL (0-0.4); EOSINOPHILS % (AUTO) 2 % (1-7); LYMPHOCYTES # (AUTO) 1.49 x10^3/uL (1-3.4); LYMPHOCYTES % (AUTO) 23 % (22-44); MD NO; MEAN CORPUSCULAR HEMOGLOBIN 21.2 pg (27.0-34.8); MEAN CORPUSCULAR HGB CONC 30.9 g/dL (32.4-35.8); MEAN CORPUSCULAR VOLUME 68.3 fL (80-100); MONOCYTES # (AUTO) 0.35 x10^3/uL (0.2-0.8); MONOCYTES % (AUTO) 5 % (2-9); NEUTROPHILS # (AUTO) 4.43 x10^3/uL (1.8-6.8); NEUTROPHILS % (AUTO) 69 % (42-75); PLATELET COUNT 325 x10^3/uL (130-400); RED BLOOD COUNT 4.13 x10^6/uL (3.82-5.3); RED CELL DISTRIBUTION WIDTH 17.3 % (9.6-15.2)
[2020-03-15 06:44] LABS: ANION GAP 7 mmol/L (5-15); CALCIUM 8.1 mg/dL (8.5-10.1); CHLORIDE 110 mmol/L (98-107)
[2020-03-15 06:49] LABS: CREATININE 1.01 mg/dL (0.55-1.02); TROPONIN I 0.063 ng/mL (0.000-0.045)
[2020-03-15 06:55] VITALS: BP 165/115
[2020-03-15] MEDS ORDERED: HEPARIN 25,000 UNITS/250ML PMX 250 ML IV PRN (17:00)
== END 2020-03-15 11:23 | disposition left against medical advice (07) | DRG 197 ==
LOC: ED 13:38 → EDIP 16:50 → SUATTDRO 16:55 → 4EST 18:10
PROVIDERS: ADMIT Hospitalist; ATTEND Family Medicine
DX: I82.411 Acute embolism and thrombosis of right femoral vein (principal); I26.99 Other pulmonary embolism without acute cor pulmonale; J90 Pleural effusion, not elsewhere classified; N17.9 Acute kidney failure, unspecified; F20.0 Paranoid schizophrenia; I31.3 Pericardial effusion (noninflammatory); F17.200 Nicotine dependence, unspecified, uncomplicated; D50.9 Iron deficiency anemia, unspecified; K44.9 Diaphragmatic hernia without obstruction or gangrene; J98.11 Atelectasis; F42.9 Obsessive-compulsive disorder, unspecified; F90.9 Attention-deficit hyperactivity disorder, unspecified type; M06.9 Rheumatoid arthritis, unspecified; G40.909 Epilepsy, unspecified, not intractable, without status epilepticus; M81.0 Age-related osteoporosis without current pathological fracture; I11.9 Hypertensive heart disease without heart failure; M54.30 Sciatica, unspecified side; M19.90 Unspecified osteoarthritis, unspecified site; R74.0 Nonspecific elevation of levels of transaminase and lactic acid dehydrogenase [LDH]; Z53.29 Procedure and treatment not carried out because of patient's decision for other reasons; K59.09 Other constipation; D47.3 Essential (hemorrhagic) thrombocythemia; Z87.11 Personal history of peptic ulcer disease; Z88.2 Allergy status to sulfonamides; Z79.899 Other long term (current) drug therapy
CPT/HCPCS: 36415; 71045; 71275; 74018; 80048; 80053; 83880; 84484; 85025; 85520; 93005; 93970; 96374; 96375; G0378; J1644; Q9967; J0360; J2270

== ENCOUNTER 2020-04-21 00:24 | Emergency (ER) | payer MEDICAID ==
[~2020-04-21] VITALS: Ht 177.8 cm; Wt 70.6 kg
[~2020-04-21 00:24] MED LIST changes: +HYDR-3246; -HYDR-36
--- NOTE | 2020-04-21 00:38 | NUR ---
THIS PT WAS CRISTHIAN ROJAS FROM [email or web address] WHERE STAFF CALLED AFTER THE PT HAD BEEN IN THE BATHROOM FOR A "SIGNIFICANT AMOUNT OF TIME." C/O ABD PAIN, PT HAS HX OF ULCERS AND STATES SHE NORMALLY CONTROLS IT WITH DIET AND MEDS, BUT "HASN'T BEEN EATING RIGHT" RECENTLY, OR TAKING HER MEDS FOR AN UNDETERMINED AMOUNT OF TIME. PT MOANING IN PAIN UPON ARRIVAL, ERP TO BEDSIDE. PT ASLEEP BEFORE THIS RN LEFT THE ROOM, EYES CLOSED, RESPIRATIONS EVEN AND UNLABORED.
[2020-04-21] MEDS ORDERED: MAALOX/HYOSCYAMINE/LIDOCAINE 45 ML BTL ONE (00:45)
[2020-04-21] MEDS ORDERED: MAALOX/HYOSCYAMINE/LIDOCAINE 45 ML BTL PO ONE (01:00)
[2020-04-21 01:11] LABS: ALANINE AMINOTRANSFERASE 28 U/L (12-78); ALBUMIN 2.8 g/dL (3.4-5.0); ANION GAP 7 mmol/L (5-15); CHLORIDE 109 mmol/L (98-107); CREATININE 1.79 mg/dL (0.55-1.02)
[2020-04-21 01:15] LABS: ALKALINE PHOSPHATASE 162 U/L (45-117); BILIRUBIN,TOTAL 0.4 mg/dL (0.2-1.0); TOTAL PROTEIN 7.1 g/dL (6.4-8.2); TROPONIN I 0.043 ng/mL (0.000-0.045)
--- NOTE | 2020-04-21 01:16 | NUR ---
PT LAYING IN BED, EYES CLOSED, RESPIRATIONS EVEN AND UNLABORED, LIGHTS OFF TO PROMOTE REST, CALL LIGHT WITHIN REACH.
--- NOTE | 2020-04-21 01:19 | NUR ---
PT INQUIRES ABOUT FOOD, WILL AWAIT ERP'S FURTHER ORDERS.
[2020-04-21 01:26] LABS: BASOPHILS # (AUTO) 0.06 x10^3/uL (0-0.1); BASOPHILS % (AUTO) 1 % (0-1); EOSINOPHILS % (AUTO) 3 % (1-7); LYMPHOCYTES % (AUTO) 21 % (22-44); MD MORPH REVIEW ONLY; MEAN CORPUSCULAR HEMOGLOBIN 20.1 pg (27.0-34.8); MEAN CORPUSCULAR VOLUME 68.2 fL (80-100); MEAN PLATELET VOLUME 8.1 fL (7.4-10.4); MONOCYTES # (AUTO) 0.59 x10^3/uL (0.2-0.8); MONOCYTES % (AUTO) 8 % (2-9); NEUTROPHILS # (AUTO) 5.14 x10^3/uL (1.8-6.8); NEUTROPHILS % (AUTO) 68 % (42-75); PLATELET COUNT 397 x10^3/uL (130-400); RED BLOOD COUNT 4.02 x10^6/uL (3.82-5.3); RED CELL DISTRIBUTION WIDTH 21.8 % (9.6-15.2)
[2020-04-21 01:27] LABS: ANISOCYTOSIS 2+; HYPOCHROMIA 1+
[2020-04-21 01:29] LABS: <PLATELET ESTIMATE> ADEQUATE; <PLT MORPHOLOGY> NORMAL PLT MORPH
[2020-04-21 01:30] LABS: MEAN CORPUSCULAR HGB CONC 29.5 g/dL (32.4-35.8)
--- NOTE | 2020-04-21 01:38 | NUR ---
PT GIVEN FOOD, TOLERATED WELL.
--- NOTE | 2020-04-21 01:45 | NUR ---
ERP TO BEDSIDE.
--- NOTE | 2020-04-21 02:17 | NUR ---
PATIENT IN RESTROOM, CAN NOT PERFORM DISCHARGE EDUCATION AT THIS TIME. WILL AWAIT FOR PATIENT TO FINISH AND DISCHARGE WILL CONTINUE. KNOCKED ON BATHROOM DOOR, PATIENT DENIES ANY NEED FOR ASSISTANCE AT THIS TIME
[2020-04-21 02:23] VITALS: BP 166/105
== END 2020-04-21 02:30 ==
LOC: ED 02:24
DX: K29.00 Acute gastritis without bleeding (principal); I11.0 Hypertensive heart disease with heart failure; I50.1 Left ventricular failure, unspecified; M06.9 Rheumatoid arthritis, unspecified; F17.210 Nicotine dependence, cigarettes, uncomplicated; Z86.711 Personal history of pulmonary embolism; Z86.718 Personal history of other venous thrombosis and embolism
CPT/HCPCS: 36415; 71045; 80053; 83690; 83880; 84484; 85025; 93005; 99285; 99406

== ENCOUNTER 2020-04-22 01:29 | Emergency (ER) | payer MEDICAID ==
[~2020-04-22] VITALS: Ht 177.8 cm; Wt 67.0 kg
--- NOTE | 2020-04-22 01:30 | NUR ---
ERP TO BEDSIDE.
--- NOTE | 2020-04-22 01:38 | NUR ---
THIS PT WAS SEEN HERE LAST NIGHT AND DIAGNOSED WITH A GASTRIC ULCER, UNABLE TO FILL D/C PRESCRIPTION MEDS. PT RETURNS TO THE ED FOR SAME S/SX. PT AMBUALTORY TO BATHROOM, GAIT AT BASELINE.
--- NOTE | 2020-04-22 01:50 | NUR ---
CONFIRMED PO MEDS OKAY INSTEAD OF IV MEDS FOR THIS PT WITH ERP.
[2020-04-22] MEDS ORDERED: FAMOTIDINE 20 MG TABLET ONE (01:59)
[2020-04-22] MEDS ORDERED: MAALOX/HYOSCYAMINE/LIDOCAINE 45 ML BTL ONE (01:59)
[2020-04-22] MEDS ORDERED: OMEPRAZOLE 20 MG CAPSULE.DR ONE (01:59)
[2020-04-22] MEDS ORDERED: FAMOTIDINE 20 MG TABLET PO ONE (02:00)
[2020-04-22] MEDS ORDERED: MAALOX/HYOSCYAMINE/LIDOCAINE 45 ML BTL PO ONE (02:00)
[2020-04-22] MEDS ORDERED: OMEPRAZOLE 20 MG CAPSULE.DR PO SCH (02:00)
--- NOTE | 2020-04-22 02:06 | NUR ---
PT. MEDICATED PER MAR. PT. EXHIBITS FLAILING MOVEMENT ON GURNEY. PT. UNABLE TO HOLD STILL FOR B/P MEASUREMENT. ALL SAFETY MEASURES OBSERVED.
[2020-04-22 03:11] VITALS: BP 176/113
--- NOTE | 2020-04-22 03:25 | NUR ---
ERP AWARE OF BP, OKAY TO D/C.
== END 2020-04-22 04:10 ==
LOC: ED 04:04
DX: K29.00 Acute gastritis without bleeding (principal); I10 Essential (primary) hypertension; M06.9 Rheumatoid arthritis, unspecified; F17.200 Nicotine dependence, unspecified, uncomplicated; Z86.718 Personal history of other venous thrombosis and embolism; Z86.711 Personal history of pulmonary embolism
CPT/HCPCS: 99284

== ENCOUNTER 2020-06-15 22:02 | Emergency (ER) | payer MEDICAID ==
[~2020-06-15] VITALS: Ht 175.3 cm; Wt 64.2 kg
--- NOTE | 2020-06-15 22:34 | NUR ---
pt here for lower back and leg pain. vss. pt given ua cup for urine sample. pt says she doesnt need to go at this time. pt aware that us is needed. call light in reach
[2020-06-15 22:48] LABS: BASOPHILS # (AUTO) 0.03 x10^3/uL (0-0.1); BASOPHILS % (AUTO) 0 % (0-1); EOSINOPHILS # (AUTO) 0.36 x10^3/uL (0-0.4); EOSINOPHILS % (AUTO) 5 % (1-7); LYMPHOCYTES # (AUTO) 1.58 x10^3/uL (1-3.4); LYMPHOCYTES % (AUTO) 23 % (22-44); MD NO; MEAN CORPUSCULAR HEMOGLOBIN 20.7 pg (27.0-34.8); MEAN CORPUSCULAR HGB CONC 30.6 g/dL (32.4-35.8); MEAN CORPUSCULAR VOLUME 67.6 fL (80-100); MEAN PLATELET VOLUME 7.8 fL (7.4-10.4); MONOCYTES # (AUTO) 0.57 x10^3/uL (0.2-0.8); MONOCYTES % (AUTO) 8 % (2-9); NEUTROPHILS # (AUTO) 4.35 x10^3/uL (1.8-6.8); NEUTROPHILS % (AUTO) 63 % (42-75); PLATELET COUNT 391 x10^3/uL (130-400); RED CELL DISTRIBUTION WIDTH 20.9 % (9.6-15.2)
[2020-06-15 22:59] LABS: ALBUMIN 3.3 g/dL (3.4-5.0); ANION GAP 9 mmol/L (5-15); CALCIUM 8.3 mg/dL (8.5-10.1); CHLORIDE 109 mmol/L (98-107); CREATININE 1.14 mg/dL (0.55-1.02)
--- NOTE | 2020-06-15 23:02 | NUR ---
PT TO CT
[2020-06-15 23:29] VITALS: BP 152/96
[2020-06-15] MEDS ORDERED: METHOCARBAMOL 750 MG TABLET ONE (23:40)
[2020-06-15] MEDS ORDERED: HYDROcodone/APAP 5/325 TABLET ONE (23:41)
--- NOTE | 2020-06-15 23:49 | NUR ---
PT MEDICATED FOR PAIN. PT TO BE DISCHARGED. PT GETTING DRESSED.
[2020-06-16] MEDS ORDERED: HYDROcodone/APAP 5/325 TABLET PO ONE
[2020-06-16] MEDS ORDERED: METHOCARBAMOL 750 MG TABLET PO ONE
--- NOTE | 2020-06-16 00:10 | NUR ---
Patient given discharge instructions and they have confirmed that they understand the instructions. Patient ambulatory with steady gait.
== END 2020-06-16 00:13 | disposition home or self-care (01) ==
LOC: ED 23:22
DX: S39.012A Strain of muscle, fascia and tendon of lower back, initial encounter (principal); I10 Essential (primary) hypertension; G40.909 Epilepsy, unspecified, not intractable, without status epilepticus; F17.200 Nicotine dependence, unspecified, uncomplicated; Z86.718 Personal history of other venous thrombosis and embolism; W18.30XA Fall on same level, unspecified, initial encounter; Y93.89 Activity, other specified; Y92.89 Other specified places as the place of occurrence of the external cause; Y99.8 Other external cause status
CPT/HCPCS: 36415; 72128; 72131; 80048; 82040; 85025; 99285

== ENCOUNTER 2020-06-22 18:20 | Emergency (ER) | payer MEDICAID ==
[~2020-06-22] VITALS: Ht 175.3 cm; Wt 70.0 kg
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
[2020-06-22] MEDS ORDERED: OXYcodone/APAP 7.5/325MG TABLET PO ONE (19:00)
[2020-06-22] MEDS ORDERED: OXYcodone/APAP 7.5/325MG TABLET ONE (19:01)
[2020-06-22 19:53] LABS: MEAN CORPUSCULAR HEMOGLOBIN 20.6 pg (27.0-34.8); MEAN CORPUSCULAR HGB CONC 30.2 g/dL (32.4-35.8); MEAN CORPUSCULAR VOLUME 68.4 fL (80-100); MEAN PLATELET VOLUME 8.1 fL (7.4-10.4); PLATELET COUNT 332 x10^3/uL (130-400)
[2020-06-22 19:54] LABS: HCT (SEDRATE) 30.1 % (34.6-47.8)
[2020-06-22 19:57] LABS: ALBUMIN 3.2 g/dL (3.4-5.0); ANION GAP 6 mmol/L (5-15); CALCIUM 8.3 mg/dL (8.5-10.1); CHLORIDE 110 mmol/L (98-107); CREATININE 1.14 mg/dL (0.55-1.02)
[2020-06-22 20:10] LABS: BASOPHILS # (AUTO) 0.03 x10^3/uL (0-0.1); BASOPHILS % (AUTO) 0 % (0-1); EOSINOPHILS # (AUTO) 0.39 x10^3/uL (0-0.4); EOSINOPHILS % (AUTO) 6 % (1-7); LYMPHOCYTES # (AUTO) 1.15 x10^3/uL (1-3.4); LYMPHOCYTES % (AUTO) 18 % (22-44); MD MORPH REVIEW ONLY; MONOCYTES # (AUTO) 0.46 x10^3/uL (0.2-0.8); MONOCYTES % (AUTO) 7 % (2-9); NEUTROPHILS # (AUTO) 4.48 x10^3/uL (1.8-6.8); NEUTROPHILS % (AUTO) 69 % (42-75)
[2020-06-22 20:11] LABS: ANISOCYTOSIS 2+
[2020-06-22 20:12] LABS: HYPOCHROMIA 1+; MICROCYTOSIS 2+; OVALOCYTES 1+
[2020-06-22 20:13] LABS: <PLATELET ESTIMATE> ADEQUATE; <PLT MORPHOLOGY> NORMAL PLT MORPH
--- NOTE | 2020-06-22 20:14 | NUR ---
oob bed tobathroom w walker gait steady. asking for food and ice cream. as
--- NOTE | 2020-06-22 20:59 | NUR ---
PLAN FOR MRI R/O DISCITIS. REPORT TO TERESA RN. GIVEN ICE CHIPS, MRI CHECKLIST DONE, NO FOOD PER MD PT AWARE.
--- NOTE | 2020-06-22 21:25 | NUR ---
Report received from FABIAN Qiuck. This RN to assume care. Patient to MRI at this time.
[2020-06-23 00:17] VITALS: BP 158/98
--- NOTE | 2020-06-23 00:27 | NUR ---
Discharge instructions given. All questions and concerns addressed. Patient ambulatory with a steady gait with walker. Belongings with patient.
[2020-06-23] MEDS ORDERED: GADOTERATE 10 MMOL/20 ML SYR ONE (13:21)
== END 2020-06-23 00:54 | disposition home or self-care (01) ==
LOC: ED 06-23 00:01
DX: M51.36 Other intervertebral disc degeneration, lumbar region (principal); M48.061 Spinal stenosis, lumbar region without neurogenic claudication; G89.29 Other chronic pain; I10 Essential (primary) hypertension; M06.9 Rheumatoid arthritis, unspecified; F17.200 Nicotine dependence, unspecified, uncomplicated; Z86.718 Personal history of other venous thrombosis and embolism
CPT/HCPCS: 36415; 72148; 72149; 80048; 82040; 85025; 85651; 86140; 99285; A9575

== ENCOUNTER 2020-08-16 20:11 | Emergency (ER) | payer MEDICAID ==
[~2020-08-16] VITALS: Ht 175.3 cm; Wt 62.5 kg
[2020-08-16 20:13] VITALS: BP 167/119
--- NOTE | 2020-08-16 20:40 | NUR ---
PT AMB IN HALLWAY WITH WALKER PER BASELINE
--- NOTE | 2020-08-16 20:41 | NUR ---
THIS IS A 60Y F THAT COMES IN FOR R EYE SWELLING, PT HAS REDNESS AND SWELLING NOTED TO R EYEBROW. PT STS THIS HAS BEEN WORSENING FOR A COUPLE DAYS. PT CRYING DURING BP CYCLING, PT REQUESTING MEDICATION FOR PAIN, EDUCATED ON PROCESS FOR MD LEWIS PRIOR TO MED ORDERS.
--- NOTE | 2020-08-16 21:00 | NUR ---
PT RESTING ON [place] CALL LIGHT IN REACH PT EATING WHILE RESTING ON KARLAKRISSY
--- NOTE | 2020-08-16 21:03 | NUR ---
DR. CROOKS AT BEDSIDE
[2020-08-16] MEDS ORDERED: CLINDAMYCIN 300 MG CAPSULE ONE (21:13)
--- NOTE | 2020-08-16 21:26 | NUR ---
Patient/Caregiver given discharge instructions and they have confirmed that they understand the instructions. Patient ambulatory with steady gait.
[2020-08-16] MEDS ORDERED: CLINDAMYCIN 300 MG CAPSULE PO ONE (21:30)
== END 2020-08-16 21:28 | disposition home or self-care (01) ==
LOC: ED 20:31
DX: L02.01 Cutaneous abscess of face (principal); G40.909 Epilepsy, unspecified, not intractable, without status epilepticus; I10 Essential (primary) hypertension; Z86.718 Personal history of other venous thrombosis and embolism
CPT/HCPCS: 99283

== ENCOUNTER 2020-10-02 19:29 | Emergency (ER) | payer MEDICAID ==
[~2020-10-02] VITALS: Ht 177.8 cm; Wt 62.0 kg
[2020-10-02 19:32] VITALS: BP 165/117
[2020-10-02 20:08] LABS: BASOPHILS % (AUTO) 1 % (0-1); EOSINOPHILS % (AUTO) 3 % (1-7); LYMPHOCYTES % (AUTO) 24 % (22-44); MEAN CORPUSCULAR HEMOGLOBIN 22.5 pg (27.0-34.8); MEAN CORPUSCULAR HGB CONC 31.4 g/dL (32.4-35.8); MEAN PLATELET VOLUME 7.6 fL (7.4-10.4); MONOCYTES % (AUTO) 7 % (2-9); NEUTROPHILS % (AUTO) 65 % (42-75); PLATELET COUNT 395 x10^3/uL (130-400); RED BLOOD COUNT 4.88 x10^6/uL (3.82-5.3); RED CELL DISTRIBUTION WIDTH 19.6 % (9.6-15.2)
[2020-10-02 20:12] LABS: MD NO
[2020-10-02 20:18] LABS: ALANINE AMINOTRANSFERASE 29 U/L (12-78); ALBUMIN 3.6 g/dL (3.4-5.0); ANION GAP 6 mmol/L (5-15); CALCIUM 9.2 mg/dL (8.5-10.1); CHLORIDE 109 mmol/L (98-107); CREATININE 1.34 mg/dL (0.55-1.02)
[2020-10-02 20:20] LABS: ALKALINE PHOSPHATASE 141 U/L (45-117); BILIRUBIN,TOTAL 0.4 mg/dL (0.2-1.0); TOTAL PROTEIN 8.1 g/dL (6.4-8.2)
--- NOTE | 2020-10-02 21:12 | NUR ---
SLEEVE SETTER: PT WALKED BACK FROM LOBBY TO ROOM AT THIS TIME.
--- NOTE | 2020-10-02 21:30 | NUR ---
PT ITZEL. AWARE. PT LAST SEEN STABLE, AMBULATORY.
== END 2020-10-02 22:17 | disposition left against medical advice (07) ==
LOC: ED 21:36
DX: R41.3 Other amnesia (principal); I10 Essential (primary) hypertension; M19.90 Unspecified osteoarthritis, unspecified site; G40.909 Epilepsy, unspecified, not intractable, without status epilepticus; Z72.9 Problem related to lifestyle, unspecified
CPT/HCPCS: 36415; 80053; 85025; 99283

== ENCOUNTER 2021-01-16 09:00 | Emergency (ER) | payer MEDICAID ==
[~2021-01-16] VITALS: Ht 175.3 cm; Wt 68.4 kg
[~2021-01-16 09:00] MED LIST changes: -HYDR-3246; +HYDR-3248
--- NOTE | 2021-01-16 09:25 | NUR ---
PT STATES HER HANDS AND FEET ARE SWELLING. PT ALSO STATES HER FEET ARE IN PAIN. PT STATES SHE HAS HAD THIS ISSUE BEFORE, NO RESOLUTION TO WHAT CAUSED IT BEFORE. PT ALSO STATES SHE HAD A BOUT OF DIARRHEA YESTERDAY, NONE SO FAR TODAY. PT STATES SHE IS HOMELESS AND SHE HAS BEEN SLEEPING OUTSIDE AND IT IS MAKING HER HAVE MORE PAIN IN HER FEET.
[2021-01-16] MEDS ORDERED: LABETALOL 100 MG TABLET PO ONE ×2 (09:30→10:00)
[2021-01-16] MEDS ORDERED: LABETALOL 5MG/ML, 20ML ONE (09:58)
[2021-01-16] MEDS ORDERED: LABETALOL 5MG/ML, 20ML IVPush ONE (09:59)
[2021-01-16 10:03] LABS: BASOPHILS % (AUTO) 1 % (0-1); EOSINOPHILS % (AUTO) 2 % (1-7); LYMPHOCYTES % (AUTO) 14 % (22-44); MEAN CORPUSCULAR HEMOGLOBIN 21.8 pg (27.0-34.8); MEAN CORPUSCULAR HGB CONC 30.9 g/dL (32.4-35.8); MEAN PLATELET VOLUME 7.7 fL (7.4-10.4); MONOCYTES % (AUTO) 6 % (2-9); NEUTROPHILS % (AUTO) 78 % (42-75); PLATELET COUNT 291 x10^3/uL (130-400); RED BLOOD COUNT 4.45 x10^6/uL (3.82-5.3); RED CELL DISTRIBUTION WIDTH 19.7 % (9.6-15.2)
[2021-01-16 10:04] LABS: MD NO
[2021-01-16 10:07] LABS: ALANINE AMINOTRANSFERASE 28 U/L (12-78); ALBUMIN 3.1 g/dL (3.4-5.0); ANION GAP 4 mmol/L (5-15); CALCIUM 9.2 mg/dL (8.5-10.1); CHLORIDE 110 mmol/L (98-107); CREATININE 1.11 mg/dL (0.55-1.02)
[2021-01-16 10:12] LABS: ALKALINE PHOSPHATASE 132 U/L (45-117); BILIRUBIN,TOTAL 0.5 mg/dL (0.2-1.0)
--- NOTE | 2021-01-16 10:13 | NUR ---
TP RN: PT AMBULATED TO THE BR W/ A STEADY GAIT. RETURNED TO ROOM W/O INCIDENT. HYPERTENSIVE, OTHER VS WDL. PT MEDICATED PER EMAR. RESTING ON GURNEY W/ CALL LIGHT IN REACH AND SIDE RAIL UPX2. NADN.
[2021-01-16] MEDS ORDERED: FUROSEMIDE 20 MG/2 ML ONE (10:45)
[2021-01-16] MEDS ORDERED: FUROSEMIDE 20 MG/2 ML IV ONE (11:00)
[2021-01-16 12:26] VITALS: BP 155/108
[2021-01-16] MEDS ORDERED: RISPERIDONE 0.5 MG TABLET PO ONE (12:30)
== END 2021-01-16 15:41 | disposition home or self-care (01) ==
LOC: ED 09:31
DX: I82.431 Acute embolism and thrombosis of right popliteal vein (principal); I11.0 Hypertensive heart disease with heart failure; I50.9 Heart failure, unspecified; F20.9 Schizophrenia, unspecified; I45.10 Unspecified right bundle-branch block; I45.9 Conduction disorder, unspecified; Z86.711 Personal history of pulmonary embolism; Z88.2 Allergy status to sulfonamides
CPT/HCPCS: 36415; 80053; 83880; 85025; 93005; 93970; 96374; 99285; J1940

== ENCOUNTER 2021-03-15 01:00 | Emergency (ER) | payer MEDICAID ==
[~2021-03-15] VITALS: Ht 180.3 cm; Wt 62.0 kg
--- NOTE | 2021-03-15 02:44 | NUR ---
donkey engine firer/fireman: pt from lobby to room 23
--- NOTE | 2021-03-15 03:05 | NUR ---
pt came into ed this evening with a c/o "i cant seem to sleep" pt unable to hold still, sitting on edge of bed, fidgeting. pt refusing to lay back on gurney, spo2/bp monitoring applied. Pt alert and oriented x4 but refusing to answer all rns questions at this time. bed in lowest, wctm.
[2021-03-15 03:44] VITALS: BP 165/91
--- NOTE | 2021-03-15 03:46 | NUR ---
Patient given discharge instructions and they have confirmed that they understand the instructions. Patient ambulatory with steady gait WITH WALKER. NAD, ALL QUESTIONS ANSWERED APPROPRIATELY. NO PERSONAL BELONGINGS LEFT IN ROOM AFTER DC.
--- NOTE | 2021-03-15 04:09 | NUR ---
Patient given discharge instructions and they have confirmed that they understand the instructions. Patient ambulatory with steady gait with walker. NAD, NO PERSONAL BELONGINGS LEFT IN ROOM AFTER DC. denies additional questions.
== END 2021-03-15 04:12 | disposition home or self-care (01) ==
LOC: ED 02:30
DX: F15.159 Other stimulant abuse with stimulant-induced psychotic disorder, unspecified (principal); F20.9 Schizophrenia, unspecified; F17.210 Nicotine dependence, cigarettes, uncomplicated; Z72.9 Problem related to lifestyle, unspecified; G40.909 Epilepsy, unspecified, not intractable, without status epilepticus; I50.9 Heart failure, unspecified; M06.9 Rheumatoid arthritis, unspecified; Z86.718 Personal history of other venous thrombosis and embolism
CPT/HCPCS: 99406

== ENCOUNTER 2021-03-21 20:49 | Emergency (ER) | payer MEDICAID ==
[~2021-03-21] VITALS: Ht 175.3 cm; Wt 62.0 kg
[2021-03-21 20:51] VITALS: BP 172/88
--- NOTE | 2021-03-21 22:37 | NUR ---
NIL X 1
--- NOTE | 2021-03-21 23:34 | NUR ---
CHARGE NURSE: BANDAR X3 OCCASSIONS LWBS
== END 2021-03-21 23:35 ==
LOC: ED 21:00
DX: K13.79 Other lesions of oral mucosa (principal); Z53.21 Procedure and treatment not carried out due to patient leaving prior to being seen by health care provider

== ENCOUNTER 2021-04-02 00:48 | Emergency (ER) | payer MEDICAID ==
[~2021-04-02] VITALS: Ht 175.3 cm; Wt 61.5 kg
[2021-04-02 00:49] VITALS: BP 136/88
--- NOTE | 2021-04-02 01:29 | NUR ---
DC EDUCATION PROVIDED, PT DEMONSTRATES UNDERSTANDING. WARM CLOTHING PROVIDED. PT AMBULATORY WITH OWN WALKER.
== END 2021-04-02 01:41 | disposition home or self-care (01) ==
LOC: ED 01:18
DX: F15.10 Other stimulant abuse, uncomplicated (principal); Z72.9 Problem related to lifestyle, unspecified; F17.210 Nicotine dependence, cigarettes, uncomplicated; Z59.0 Homelessness
CPT/HCPCS: 99281; 99406